=== PATIENT | male | born 1970 | race Caucasian/White ===

== ENCOUNTER 2017-08-11 15:54 | Emergency (ER) | payer OTHER ==
[2017-08-11 17:02] LABS: Basophils % (Auto) 0.3 % (0.0-1.8); Eosinophils % (Auto) 2.1 % (0.0-4.3); Hematocrit 52.9 % (35.5-45.6); Hemoglobin 17.2 gm/dl (11.8-15.2); Mean Corpuscular HGB Conc 33 % (32-34); Mean Corpuscular Hemoglobin 30 pg (28-32); Mean Corpuscular Volume 93 fl (84-94); Platelet Count 159 K/mm3 (140-440); Red Blood Count 5.68 M/mm3 (3.65-5.03); Red Cell Distribution Width 13.8 % (13.2-15.2); White Blood Count 6.7 K/mm3 (4.5-11.0)
[2017-08-11 17:22] LABS: Anion Gap 21 mmol/L; Blood Urea Nitrogen 8 mg/dL (9-20); Calcium 9.4 mg/dL (8.4-10.2); Carbon Dioxide 25 mmol/L (22-30); Potassium 4.9 mmol/L (3.6-5.0); Sodium 125 mmol/L (137-145)
[2017-08-11 17:43] LABS: Glucose 775 mg/dL (75-100)
[2017-08-11] MEDS ORDERED: NACL 0.9% 1000 ML 2,000 ML IV ONE (20:03)
[2017-08-11] MEDS ORDERED: TORADOL ONE (23:58)
[2017-08-11] MEDS ORDERED: NACL 0.9% 1000 ML 1,000 ML ONE (23:58)
[2017-08-12] MEDS ORDERED: ZITHROMAX PO ONE (01:51)
[2017-08-12] MEDS ORDERED: NACL 0.9% 1000 ML 1,000 ML IV ONE (01:51)
[2017-08-12] MEDS ORDERED: TESSALON PERLES PO ONE (01:51)
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
[2017-08-12 06:16] VITALS: BP 120/75
--- NOTE | 2017-08-12 10:20 | XRay Report ---
CHEST TWO VIEWS: 08/11/17 15:54:00 CLINICAL: Shortness of breath. COMPARISON: None FINDINGS: Normal heart and pulmonary vasculature. The lungs are normally expanded and clear. The bones and soft tissues are normal. IMPRESSION: Normal.No acute cardiopulmonary process.
== END 2017-08-12 05:30 | disposition home or self-care (01) ==
LOC: ED 15:54
DX: J20.9 Acute bronchitis, unspecified (principal); E11.65 Type 2 diabetes mellitus with hyperglycemia; J45.909 Unspecified asthma, uncomplicated; I10 Essential (primary) hypertension; F17.200 Nicotine dependence, unspecified, uncomplicated
CPT/HCPCS: 36415; 71020; 80048; 82805; 82962; 84484; 85025; 93005; 93010; 96361; 96374; 96375; 99284; J2930; J7030; J1815; J1885

== ENCOUNTER 2017-11-01 20:52 | Emergency (ER) | payer OTHER ==
[2017-11-01] MEDS ORDERED: TYLENOL PO ONE (22:54)
[2017-11-01] MEDS ORDERED: TYLENOL ONE (22:56)
[2017-11-02] MEDS ORDERED: MOTRIN PO ONE (02:10)
[2017-11-02] MEDS ORDERED: XYLOCAINE 2%/ EPI 1:200,000 INFILTRATI ONE (02:10)
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
[2017-11-02] MEDS ORDERED: MORPHINE IV ONE (02:22)
[2017-11-02] MEDS ORDERED: NACL 0.9% 500 ML 500 ML IV ONE (02:22)
[2017-11-02] MEDS ORDERED: CLEOCIN 600 MG/50 mL 600 MG/50 ML BAG IV ONE (02:22)
[2017-11-02 02:50] LABS: Basophils % (Auto) 0.6 % (0.0-1.8); Eosinophils % (Auto) 2.5 % (0.0-4.3); Hematocrit 48.6 % (35.5-45.6); Hemoglobin 16.2 gm/dl (11.8-15.2); Mean Corpuscular HGB Conc 33 % (32-34); Mean Corpuscular Hemoglobin 31 pg (28-32); Mean Corpuscular Volume 94 fl (84-94); Platelet Count 243 K/mm3 (140-440); Red Blood Count 5.16 M/mm3 (3.65-5.03); Red Cell Distribution Width 13.3 % (13.2-15.2)
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
[2017-11-02] MEDS ORDERED: NACL ONE (03:07)
[2017-11-02 03:08] LABS: Anion Gap 20 mmol/L; BUN/Creatinine Ratio 14; Blood Urea Nitrogen 11 mg/dL (9-20); Calcium 9.3 mg/dL (8.4-10.2); Carbon Dioxide 24 mmol/L (22-30); Chloride 97.3 mmol/L (98-107); Glucose 212 mg/dL (75-100); Potassium 4.3 mmol/L (3.6-5.0); Sodium 137 mmol/L (137-145)
--- NOTE | 2017-11-02 03:57 | Cat Scan Report ---
FINAL REPORT EXAM: CT NECK W CON HISTORY: large posterior neck abscess above c-spine TECHNIQUE: Routine axial imaging was obtained of the soft tissues of the neck following the intravenous injection of 100 cc of Omnipaque 300. Sagittal and coronal reconstructions were reviewed. FINDINGS: There is a subcutaneous abscess left of midline in the posterior neck at the C2-3 through the C3-C4 level. Measuring 3.5 cm x 2.4 cm x 2.7 cm. The abscess is contiguous with the superficial posterior neck strap muscles. There is overlying skin thickening as well. There are no additional abscesses. The airway appears normal. The vascular structures enhance normally. The parotid and submandibular glands appear normal. The vocal cords appear normal. The thyroid gland is normal in configuration. The lung apices are clear. The retropharyngeal space appears normal. There benign-appearing shoddy lymph nodes in the submandibular and submandibular chains bilaterally. The skeletal structures otherwise are unremarkable. IMPRESSION: Subcutaneous abscess left of midline in the posterior neck soft tissues measuring 3.5 cm x 2.4 cm x 2.7 cm with overlying cellulitis. No evidence of pathologic lymphadenopathy in any compartment of the neck.
[2017-11-02 07:24] VITALS: BP 106/65
== END 2017-11-02 05:50 | disposition home or self-care (01) ==
LOC: ED 20:52
DX: L02.11 Cutaneous abscess of neck (principal); I10 Essential (primary) hypertension; E11.9 Type 2 diabetes mellitus without complications; J45.909 Unspecified asthma, uncomplicated; F17.200 Nicotine dependence, unspecified, uncomplicated
CPT/HCPCS: 10060; 36415; 70491; 80048; 82140; 82962; 85025; 96365; 96375; 99284; J2270; J7040; Q9967

== ENCOUNTER 2017-11-03 09:43 | Emergency (ER) | payer OTHER ==
[2017-11-03 10:02] VITALS: BP 128/89
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
== END 2017-11-03 12:23 | disposition home or self-care (01) ==
LOC: ED 09:43
DX: Z48.01 Encounter for change or removal of surgical wound dressing (principal); I10 Essential (primary) hypertension; E11.9 Type 2 diabetes mellitus without complications; F17.200 Nicotine dependence, unspecified, uncomplicated
CPT/HCPCS: 99282

== ENCOUNTER 2017-12-21 20:09 | Emergency (ER) | payer OTHER ==
[2017-12-21] MEDS ORDERED: TYLENOL ONE (20:54)
[2017-12-21] MEDS ORDERED: TYLENOL PO ONE (20:58)
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
[2017-12-22] MEDS ORDERED: TYLENOL PO ONE (07:50)
--- NOTE | 2017-12-22 09:41 | XRay Report ---
Chest 2 views: Compared to 08/11/17. Findings: Borderline cardiomegaly. Trachea is midline. No consolidation, pneumothorax or pleural effusion. Impression: Borderline cardiomegaly. No acute lung changes.
[2017-12-22] MEDS ORDERED: DELTASONE PO ONE (10:12)
[2017-12-22] MEDS ORDERED: XOPENEX IH ONE (10:12)
[2017-12-22] MEDS ORDERED: ATROVENT IH ONE (10:12)
[2017-12-22 12:05] VITALS: BP 122/84
== END 2017-12-22 12:05 | disposition home or self-care (01) ==
LOC: ED 20:09
DX: J45.901 Unspecified asthma with (acute) exacerbation (principal); F10.10 Alcohol abuse, uncomplicated; I10 Essential (primary) hypertension; E11.9 Type 2 diabetes mellitus without complications
CPT/HCPCS: 71046; 82962; 94640; 99284; J7512

== ENCOUNTER 2018-07-28 00:11 | Emergency (ER) | payer OTHER ==
[2018-07-28 01:39] LABS: Basophils # (Auto) 0.1 K/mm3 (0.0-0.1); Basophils % (Auto) 1.2 % (0.0-1.8); Eosinophils # (Auto) 0.2 K/mm3 (0.0-0.4); Eosinophils % (Auto) 2.3 % (0.0-4.3); Hematocrit 50.7 % (35.5-45.6); Hemoglobin 16.6 gm/dl (11.8-15.2); Lymphocytes # (Auto) 2.3 K/mm3 (1.2-5.4); Lymphocytes % (Auto) 33.3 % (13.4-35.0); Mean Corpuscular HGB Conc 33 % (32-34); Mean Corpuscular Hemoglobin 31 pg (28-32); Mean Corpuscular Volume 93 fl (84-94); Monocytes # (Auto) 0.7 K/mm3 (0.0-0.8); Monocytes % (Auto) 10.6 % (0.0-7.3); Platelet Count 193 K/mm3 (140-440); Red Blood Count 5.46 M/mm3 (3.65-5.03); Red Cell Distribution Width 12.9 % (13.2-15.2)
[2018-07-28 01:57] LABS: BUN/Creatinine Ratio 13; Blood Urea Nitrogen 17 mg/dL (9-20); Calcium 9.6 mg/dL (8.4-10.2); Hemolysis Index 16
[2018-07-28 02:37] LABS: Bilirubin,Urine NEG (Negative); Blood,Urine NEG (Negative); Color,Urine Colorless (Yellow); Protein,Urine <15 mg/dL mg/dL (Negative); Urobilinogen,Urine < 2.0 mg/dL (<2.0)
[2018-07-28 02:39] LABS: WBC,Urine < 1.0 /HPF (0.0-6.0)
[2018-07-28] MEDS ORDERED: HumuLIN R IV ONE ×4 (06:51→11:18)
[2018-07-28] MEDS ORDERED: NACL 0.9% 1000 ML 1,000 ML IV ONE ×3 (06:51→09:27)
[2018-07-28] MEDS ORDERED: CLEOCIN 600 MG/50 mL 600 MG/50 ML BAG IV ONE (06:59)
[2018-07-28] MEDS ORDERED: TORADOL IV ONE (06:59)
[2018-07-28] MEDS ORDERED: DILAUDID IV ONE (06:59)
[2018-07-28] MEDS ORDERED: XYLOCAINE 1%/ EPI 1:100,000 INFILTRATI NR (07:00)
[2018-07-28] MEDS ORDERED: ZOFRAN IV ONE (07:15)
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
[2018-07-28] MEDS ORDERED: GLUCOPHAGE PO ONE (12:26)
[2018-07-28 12:50] VITALS: BP 125/86
== END 2018-07-28 12:51 | disposition home or self-care (01) ==
LOC: ED 00:11
DX: E11.65 Type 2 diabetes mellitus with hyperglycemia (principal); L02.11 Cutaneous abscess of neck; I10 Essential (primary) hypertension; J45.909 Unspecified asthma, uncomplicated; F17.200 Nicotine dependence, unspecified, uncomplicated; Z91.14 Patient's other noncompliance with medication regimen
CPT/HCPCS: 10060; 36415; 80048; 81001; 82805; 82962; 85025; 96361; 96365; 96375; 96376; 99284; J1170; J1885; J2405; J7030; J1815

== ENCOUNTER 2018-07-30 08:41 | Emergency (ER) | payer OTHER ==
[2018-07-30 09:18] VITALS: BP 127/99
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
== END 2018-07-30 10:21 | disposition home or self-care (01) ==
LOC: ED 08:41
DX: Z48.01 Encounter for change or removal of surgical wound dressing (principal); T14.8XXD Other injury of unspecified body region, subsequent encounter

== ENCOUNTER 2019-06-15 09:19 | Emergency (ER) | payer SELFPAY ==
[2019-06-15] MEDS ORDERED: NACL 0.9% 1000 ML 2,000 ML IV ONE (09:55)
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
[2019-06-15 10:48] LABS: Alanine Aminotransferase 21 units/L (7-56); Albumin 4.4 g/dL (3.9-5); BUN/Creatinine Ratio 14; Blood Urea Nitrogen 14 mg/dL (9-20); Calcium 9.4 mg/dL (8.4-10.2); Hemolysis Index 33
[2019-06-15 11:19] LABS: Hematocrit 47.1 % (35.5-45.6); Hemoglobin 15.6 gm/dl (11.8-15.2); Mean Corpuscular HGB Conc 33 % (32-34); Mean Corpuscular Hemoglobin 31 pg (28-32); Mean Corpuscular Volume 93 fl (84-94); Platelet Count 207 K/mm3 (140-440); Red Blood Count 5.05 M/mm3 (3.65-5.03); Red Cell Distribution Width 12.9 % (13.2-15.2)
[2019-06-15] MEDS ORDERED: HumuLIN R IV ONE (11:20)
[2019-06-15 12:38] VITALS: BP 119/85
== END 2019-06-15 13:04 | disposition home or self-care (01) ==
LOC: ED 09:19
DX: E11.65 Type 2 diabetes mellitus with hyperglycemia (principal); I10 Essential (primary) hypertension; J45.909 Unspecified asthma, uncomplicated; F17.200 Nicotine dependence, unspecified, uncomplicated; Z79.899 Other long term (current) drug therapy
CPT/HCPCS: 36415; 80053; 82550; 82805; 82962; 83735; 85027; 96374; 99283; J7030; J1815

== ENCOUNTER 2019-07-03 10:06 | Emergency (ER) | payer BC ==
[2019-07-03 10:39] VITALS: BP 121/85
[2019-07-03 11:22] LABS: Basophils # (Auto) 0.1 K/mm3 (0.0-0.1); Basophils % (Auto) 0.9 % (0.0-1.8); Eosinophils # (Auto) 0.2 K/mm3 (0.0-0.4); Eosinophils % (Auto) 2.2 % (0.0-4.3); Hematocrit 53.9 % (35.5-45.6); Lymphocytes # (Auto) 2.7 K/mm3 (1.2-5.4); Lymphocytes % (Auto) 36.1 % (13.4-35.0); Mean Corpuscular HGB Conc 34 % (32-34); Mean Corpuscular Volume 91 fl (84-94); Monocytes # (Auto) 0.5 K/mm3 (0.0-0.8); Monocytes % (Auto) 6.6 % (0.0-7.3); Platelet Count 215 K/mm3 (140-440); Red Blood Count 5.94 M/mm3 (3.65-5.03); Red Cell Distribution Width 12.7 % (13.2-15.2)
[2019-07-03 11:53] LABS: Blood Urea Nitrogen 11 mg/dL (9-20)
[2019-07-03 11:54] LABS: BUN/Creatinine Ratio 12; Hemolysis Index 24
[2019-07-03] MEDS ORDERED: NACL 0.9% 1000 ML 1,000 ML ONE (11:57)
[2019-07-03] MEDS ORDERED: NACL 0.9% 1000 ML 1,000 ML IV ONE (12:09)
[2019-07-03] MEDS ORDERED: HumuLIN R IV ONE (12:34)
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
== END 2019-07-03 14:38 | disposition home or self-care (01) ==
LOC: ED 10:06
DX: E11.65 Type 2 diabetes mellitus with hyperglycemia (principal); I10 Essential (primary) hypertension; J45.909 Unspecified asthma, uncomplicated; Z79.899 Other long term (current) drug therapy; Z91.11 Patient's noncompliance with dietary regimen
CPT/HCPCS: 36415; 80048; 82010; 82805; 82962; 84484; 85025; 96374; 99282; J7030; J1815

== ENCOUNTER 2019-08-17 06:17 | Emergency (ER) | payer SELFPAY ==
[2019-08-17 07:38] LABS: Bilirubin,Urine NEG (Negative); Blood,Urine NEG (Negative); Color,Urine Colorless (Yellow); Protein,Urine <15 mg/dL mg/dL (Negative); Urobilinogen,Urine < 2.0 mg/dL (<2.0)
[2019-08-17 07:55] LABS: Basophils % (Auto) 0.5 % (0.0-1.8); Eosinophils # (Auto) 0.1 K/mm3 (0.0-0.4); Eosinophils % (Auto) 1.6 % (0.0-4.3); Lymphocytes # (Auto) 1.1 K/mm3 (1.2-5.4); Lymphocytes % (Auto) 19.7 % (13.4-35.0); Mean Corpuscular HGB Conc 31 % (32-34); Mean Corpuscular Volume 99 fl (84-94); Monocytes # (Auto) 0.5 K/mm3 (0.0-0.8); Monocytes % (Auto) 8.1 % (0.0-7.3); Platelet Count 195 K/mm3 (140-440); Red Blood Count 5.36 M/mm3 (3.65-5.03); Red Cell Distribution Width 13.8 % (13.2-15.2)
[2019-08-17 07:57] LABS: Hemoglobin 16.6 gm/dl (11.8-15.2)
[2019-08-17 08:18] LABS: Alanine Aminotransferase 20 units/L (7-56); Albumin 4.4 g/dL (3.9-5); BUN/Creatinine Ratio 14; Blood Urea Nitrogen 15 mg/dL (9-20); Calcium 9.5 mg/dL (8.4-10.2); Hemolysis Index 13
[2019-08-17] MEDS ORDERED: SODIUM CHLORIDE 0.9% 1000 ML 1,000 ML ONE (08:45)
[2019-08-17] MEDS ORDERED: INSULIN REGULAR, HUMAN 100 UNITS/1 ML IV ONE (09:01)
[2019-08-17] MEDS ORDERED: SODIUM CHLORIDE 0.9% 1000 ML 2,000 ML IV ONE (09:01)
[2019-08-17] MEDS ORDERED: DEXTROSE 50% IN WATER (25GM) 50 ML SYRINGE IV PRN ×2 (09:01→12:18)
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
[2019-08-17] MEDS ORDERED: INSULIN REGULAR, HUMAN 100 UNITS in SODIUM CHLORIDE 0.9% 99 ML IV SCH ×2 (10:00→13:00)
[2019-08-17] MEDS ORDERED: D5W/0.45% NACL/KCL 20 MEQ 20 MEQ/1,000 ML BAG IV SCH (10:00)
[2019-08-17 10:57] LABS: BUN/Creatinine Ratio TNR
[2019-08-17 10:58] LABS: Calcium TNR mg/dL (8.4-10.2); Hemolysis Index TNR
[2019-08-17 10:59] LABS: Blood Urea Nitrogen TNR mg/dL (9-20)
[2019-08-17 11:32] LABS: BUN/Creatinine Ratio 16; Blood Urea Nitrogen 14 mg/dL (9-20); Calcium 9.7 mg/dL (8.4-10.2); Hemolysis Index 18
--- NOTE | 2019-08-17 12:17 | History and Physical Report ---
History of Present Illness Date of examination: 08/17/19 Date of admission: 08/17/19 09:04 Chief complaint: Elevated blood sugar History of present illness: This is a pleasant 49-year-old with past medical history of obesity, sleep apnea, medication noncompliance, and diabetes mellitus type II who presents to the emergency department with complaints of elevated blood glucose. He reports that he ran out of his diabetic medication 2 weeks ago. He has been having polyuria and polydipsia. He denies physical pain. He denies other complaints. No fever or chills. No cough or cold-like symptoms. No headache or visual disturbances. Past History Past Medical History: diabetes, hypertension, other (sleep apnea, obesity) Past Surgical History: No surgical history Social history: no significant social history Family history: no significant family history Medications and Allergies Allergies Allergy/AdvReac Type Severity Reaction Status Date / Time No Known Allergies Allergy Verified 06/15/19 09:27 Home Medications Medication Instructions Recorded Confirmed Last Taken Type Azithromycin [Zithromax Z-VITOR] 1 dose PO DAILY 5 Days tab 08/12/17 Unknown Rx Benzonatate [Tessalon Perles] 100 mg PO Q8HR #30 capsule 08/12/17 Unknown Rx Clindamycin [Clindamycin CAP] 300 mg PO Q6H #28 capsule 11/02/17 Unknown Rx ALBUTEROL Inhaler (OR & NICU) 2 puff IH QID PRN #1 inhalation 12/22/17 Unknown Rx [ProAir HFA Inhaler] Acetaminophen/Codeine [Tylenol 1 tab PO Q6H PRN #9 tab 12/22/17 Unknown Rx /Codeine # 3 tab] Cetirizine HCl [ZyrTEC] 10 mg PO QAM 10 Days #10 capsule 12/22/17 Unknown Rx Fluticasone [Flonase] 1 spray NS QDAY 10 Days #10 bottle 12/22/17 Unknown Rx predniSONE [Prednisone] 50 mg PO QAM #3 tablet 12/22/17 Unknown Rx Ibuprofen [Motrin 800 MG tab] 800 mg PO Q8HR PRN #30 tablet 07/28/18 Unknown Rx Metformin HCl [Glucophage] 1,000 mg PO BID #60 tablet 07/28/18 Unknown Rx Sulfamethoxazole/Trimethoprim 1 each PO BID #20 tablet 07/28/18 Unknown Rx [Bactrim DS TAB] Acetaminophen/Codeine [Tylenol #3] 1 tab PO Q6H PRN #12 tab 08/04/18 Unknown Rx Doxycycline Hyclate [Doxycycline 100 mg PO Q12HR #20 tab 08/04/18 Unknown Rx Hyclate TAB] Metformin HCl [metFORMIN] 1,000 mg PO BID #60 tablet 08/04/18 Unknown Rx cephALEXin [Keflex] 500 mg PO Q6HR #20 capsule 08/04/18 Unknown Rx Metformin HCl [Glucophage] 1,000 mg PO BID #60 tablet 06/15/19 Unknown Rx glipiZIDE [Glucotrol] 10 mg PO BID #60 tab 06/15/19 Unknown Rx Active Meds: Active Medications Dextrose (D50w (25gm) Syringe) 0 ml IV PRN PRN PRN Reason: Hypoglycemia Insulin Human Regular 100 (units/ Sodium Chloride) 100 mls @ 1 mls/hr IV TITR EMILY; Protocol Last Titration: 08/17/19 11:36 Dose: 8 units/hr, 8 mls/hr Documented by: Potassium Chloride/Dextrose/Sod Cl (D5w/0.45% Nacl/Kcl 20 Meq) 20 meq in 1,000 mls @ 125 mls/hr IV DIRECT EMILY Review of Systems All systems: negative Exam - Constitutional Vitals: Temp Pulse Resp BP Pulse Ox 98.0 F 87 11 L 135/103 94 08/17/19 06:32 08/17/19 11:00 08/17/19 11:00 08/17/19 11:00 08/17/19 11:00 General appearance: Present: no acute distress, well-nourished - EENT Eyes: Present: PERRL ENT: hearing intact, clear oral mucosa - Neck Neck: Present: supple, normal ROM - Respiratory Respiratory effort: normal Respiratory: bilateral: CTA - Cardiovascular Heart Sounds: Present: S1 & S2. Absent: rub, click - Extremities Extremities: pulses symmetrical, No edema Peripheral Pulses: within normal limits - Abdominal General gastrointestinal: Present: soft, non-tender, non-distended, normal bowel sounds Male genitourinary: Present: normal - Integumentary Integumentary: Present: clear, warm, dry - Musculoskeletal Musculoskeletal: gait normal, strength equal bilaterally - Psychiatric Psychiatric: appropriate mood/affect, intact judgment & insight - Neurologic Neurologic: CNII-XII intact, moves all extremities Results - Labs CBC & Chem 7: 08/17/19 07:40 08/17/19 11:07 Labs: Laboratory Last Values WBC 5.8 K/mm3 (4.5-11.0) 08/17/19 07:40 RBC 5.36 M/mm3 (3.65-5.03) H 08/17/19 07:40 Hgb 16.6 gm/dl (11.8-15.2) H 08/17/19 07:40 Hct 53.0 % (35.5-45.6) H 08/17/19 07:40 MCV 99 fl (84-94) H 08/17/19 07:40 MCH 31 pg (28-32) 08/17/19 07:40 MCHC 31 % (32-34) L 08/17/19 07:40 RDW 13.8 % (13.2-15.2) 08/17/19 07:40 Plt Count 195 K/mm3 (140-440) 08/17/19 07:40 Lymph % (Auto) 19.7 % (13.4-35.0) 08/17/19 07:40 [place] % (Auto) 8.1 % (0.0-7.3) H 08/17/19 07:40 Eos % (Auto) 1.6 % (0.0-4.3) 08/17/19 07:40 Baso % (Auto) 0.5 % (0.0-1.8) 08/17/19 07:40 Lymph # 1.1 K/mm3 (1.2-5.4) L 08/17/19 07:40 [place] # 0.5 K/mm3 (0.0-0.8) 08/17/19 07:40 Eos # 0.1 K/mm3 (0.0-0.4) 08/17/19 07:40 Baso # 0.0 K/mm3 (0.0-0.1) 08/17/19 07:40 Seg Neutrophils % 70.1 % (40.0-70.0) H 08/17/19 07:40 Seg Neutrophils # 4.0 K/mm3 (1.8-7.7) 08/17/19 07:40 VBG pH 7.266 (7.320-7.420) L 08/17/19 07:40 Sodium 135 mmol/L (137-145) L D 08/17/19 11:07 Potassium 4.2 mmol/L (3.6-5.0) 08/17/19 11:07 Chloride 97.0 mmol/L (98-107) L 08/17/19 11:07 Carbon Dioxide 25 mmol/L (22-30) 08/17/19 11:07 17 mmol/L 08/17/19 11:07 BUN 14 mg/dL (9-20) 08/17/19 11:07 0.9 mg/dL (0.8-1.5) 08/17/19 11:07 Estimated GFR > 60 ml/min 08/17/19 11:07 16 % 08/17/19 11:07 Glucose 688 mg/dL (75-100) H* 08/17/19 11:07 POC Glucose > 500 (70-105) H 08/17/19 10:15 Calcium 9.7 mg/dL (8.4-10.2) 08/17/19 11:07 Phosphorus 5.30 mg/dL (2.5-4.5) H 08/17/19 09:52 Magnesium 2.40 mg/dL (1.7-2.3) H 08/17/19 09:52 0.30 mg/dL (0.1-1.2) 08/17/19 07:40 AST 13 units/L (5-40) 08/17/19 07:40 ALT 20 units/L (7-56) 08/17/19 07:40 95 units/L (35-129) 08/17/19 07:40 6.4 g/dL (6.3-8.2) 08/17/19 07:40 4.4 g/dL (3.9-5) 08/17/19 07:40 2.2 % 08/17/19 07:40 Colorless (Yellow) 08/17/19 07:21 Clear (Clear) 08/17/19 07:21 7.0 (5.0-7.0) 08/17/19 07:21 Ur Specific [place] 1.018 (1.003-1.030) 08/17/19 07:21 <15 mg/dl mg/dL (Negative) 08/17/19 07:21 >=500 mg/dL (Negative) 08/17/19 07:21 Neg mg/dL (Negative) 08/17/19 07:21 Neg (Negative) 08/17/19 07:21 Neg (Negative) 08/17/19 07:21 Neg (Negative) 08/17/19 07:21 < 2.0 mg/dL (<2.0) 08/17/19 07:21 Ur Leukocyte Esterase Neg (Negative) 08/17/19 07:21 0.0 /HPF (0.0-6.0) 08/17/19 07:21 1.0 /HPF (0.0-6.0) 08/17/19 07:21 Assessment and Plan Assessment and plan: DKA. Patient will be admitted to the ICU and started on IV insulin drip. We'll transition to long-acting insulin when anion gap has closed. Diabetes mellitus type II. As above. Hypertension. Resume antihypertensive medications. KATHY. CPAP as needed. Obesity. Patient will be counseled on weight loss and dietary modifications.
[2019-08-17] MEDS ORDERED: D5W IV ONE (14:16)
[2019-08-17] MEDS ORDERED: NACL IV ONE (14:16)
[2019-08-17] MEDS ORDERED: D5W/0.45% NACL/KCL 20 MEQ 20 MEQ/1,000 ML BAG IV ONE (14:20)
[2019-08-17 17:11] VITALS: BP 111/67
[2019-08-18] MEDS ORDERED: ENOXAPARIN 40 MG/0.4 ML INJ SUB-Q SCH (10:00)
== END 2019-08-17 16:10 | disposition admitted as inpatient to this hospital (09) ==
LOC: ED 06:17 → UNDOADMIN 09:04 → CC1 09:04 → ED 16:10
DX: E11.10 Type 2 diabetes mellitus with ketoacidosis without coma (principal); I10 Essential (primary) hypertension; J45.909 Unspecified asthma, uncomplicated; Z79.899 Other long term (current) drug therapy
CPT/HCPCS: 36415; 80048; 80053; 81001; 82805; 82962; 83735; 84100; 85025; 96361; 96365; 96366; 96375; 99291; J7030; J1815

== ENCOUNTER 2019-12-15 03:27 | Emergency (ER) | payer SELFPAY ==
[2019-12-15 05:55] VITALS: BP 119/87
== END 2019-12-15 04:00 | disposition left against medical advice (07) ==
LOC: ED 03:27
DX: E11.65 Type 2 diabetes mellitus with hyperglycemia (principal); Z53.21 Procedure and treatment not carried out due to patient leaving prior to being seen by health care provider
CPT/HCPCS: 82962; 87116; 87430

== ENCOUNTER 2020-05-03 05:08 | Emergency (ER) | payer SELFPAY ==
[2020-05-03] MEDS ORDERED: ASPIRIN 325 MG TAB PO ONE (05:24)
[2020-05-03 06:59] LABS: Basophils % (Auto) 0.5 % (0.0-1.8); Eosinophils # (Auto) 0.1 K/mm3 (0.0-0.4); Eosinophils % (Auto) 0.7 % (0.0-4.3); Hematocrit 50.4 % (35.5-45.6); Hemoglobin 16.3 gm/dl (11.8-15.2); Lymphocytes # (Auto) 2.1 K/mm3 (1.2-5.4); Lymphocytes % (Auto) 25.3 % (13.4-35.0); Mean Corpuscular HGB Conc 32 % (32-34); Mean Corpuscular Volume 90 fl (84-94); Monocytes # (Auto) 0.6 K/mm3 (0.0-0.8); Monocytes % (Auto) 7.3 % (0.0-7.3); Platelet Count 241 K/mm3 (140-440); Red Blood Count 5.62 M/mm3 (3.65-5.03); Red Cell Distribution Width 13.2 % (13.2-15.2)
[2020-05-03 07:11] LABS: BUN/Creatinine Ratio 13; Blood Urea Nitrogen 10 mg/dL (9-20); Calcium 8.9 mg/dL (8.4-10.2); Hemolysis Index 2
[2020-05-03] MEDS ORDERED: ALUM-MAG HYDROXIDE-SIMETHICONE 200-200-20MG/5ML ORAL LIQD 30 ML PO ONE (08:42)
[2020-05-03] MEDS ORDERED: LIDOCAINE VISCOUS 2% 15 ML ORAL LIQD PO ONE (08:42)
[2020-05-03] MEDS ORDERED: ONDANSETRON 4 MG/2 ML INJ IV ONE (08:45)
[2020-05-03] MEDS ORDERED: SODIUM CHLORIDE 0.9% 1000 ML 1,000 ML IV ONE (08:45)
[2020-05-03] MEDS ORDERED: FAMOTIDINE 20 MG/2 ML INJ IV ONE (08:45)
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
[2020-05-03 09:52] LABS: Albumin 4.1 g/dL (3.9-5); Bilirubin,Direct 0.2 mg/dL (0-0.2)
[2020-05-03 10:32] VITALS: BP 108/78
== END 2020-05-03 10:32 | disposition home or self-care (01) ==
LOC: ED 05:08
DX: K29.60 Other gastritis without bleeding (principal); I10 Essential (primary) hypertension; E11.9 Type 2 diabetes mellitus without complications; J45.909 Unspecified asthma, uncomplicated
CPT/HCPCS: 36415; 71045; 80048; 80076; 82962; 83690; 84484; 85025; 93005; 96361; 96374; 96375; 99283; J2405; J7030

== ENCOUNTER 2021-04-07 09:08 | Emergency (ER) | payer OTHER ==
[2021-04-07 16:45] VITALS: BP 119/67
== END 2021-04-07 16:45 | disposition left against medical advice (07) ==
LOC: ED 09:08
DX: E11.65 Type 2 diabetes mellitus with hyperglycemia (principal); Z91.19 Patient's noncompliance with other medical treatment and regimen; I10 Essential (primary) hypertension; J45.909 Unspecified asthma, uncomplicated; Z79.4 Long term (current) use of insulin; Z79.899 Other long term (current) drug therapy; Z98.890 Other specified postprocedural states
CPT/HCPCS: 36415; 71046; 80053; 81001; 82010; 82805; 82962; 83735; 84100; 84484; 85025; 93005; 96361; 96374; 99284; J7030; J1815

== ENCOUNTER 2021-07-16 07:55 | Emergency (ER) | payer OTHER | END 2021-07-16 08:00 | disposition left against medical advice (07) | LOC: ED 07:55 | DX: K59.00 Constipation, unspecified (principal); Z53.21 Procedure and treatment not carried out due to patient leaving prior to being seen by health care provider ==

== ENCOUNTER 2021-10-29 04:02 | Emergency (ER) | payer OTHER ==
[2021-10-29 04:38] VITALS: BP 113/80
--- NOTE | 2021-10-29 05:13 | XRay Report ---
ABDOMEN 1 VIEW 10/29/2021 4:05 AM INDICATION / CLINICAL INFORMATION: NO BM IN 10 DAYS. COMPARISON: None available. FINDINGS: TUBES / LINES: None. BOWEL GAS PATTERN: There is a moderate amount of stool in the right colon. There is no evidence of yogesh wel obstruction or mass effect. FREE AIR / EXTRALUMINAL GAS: None. ADDITIONAL FINDINGS: No significant additional findings. IMPRESSION: No acute abnormality. Signer Name: Norberto Contreras MD Signed: 10/29/2021 5:08 AM Workstation Name: [id number]
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
== END 2021-10-29 10:08 | disposition home or self-care (01) ==
LOC: ED 04:02
DX: E11.40 Type 2 diabetes mellitus with diabetic neuropathy, unspecified (principal); K59.00 Constipation, unspecified; M79.662 Pain in left lower leg; I10 Essential (primary) hypertension; J45.909 Unspecified asthma, uncomplicated
CPT/HCPCS: 74018; 82962; 99283